=== PATIENT | female | born 1975 | race Asian ===

== ENCOUNTER → 2018-01-20 | Outpatient (CLI) | payer OTHER ==
[~2018-01-20] MED LIST: BIRTH CONTROL PILL; CEP500 PO; DESO1TAB40 PO
--- NOTE | 2018-01-20 10:56 | RADIOLOGY IMAGING REPORT ---
FACILITY: [facility] [place] PATIENT NAME: Jarad Levine : 1975 MR: [id number] V: [id number] EXAM DATE: ORDERING PHYSICIAN: RICHARD DEL ANGEL TECHNOLOGIST: Location: [facility] Patient: Jarad Levine : 1975 Visit/Account:[id number] Date of Sevice: 01/20/2018 THYROID HISTORY: Hypothyroidism COMPARISON: None. FINDINGS: SIZE: Normal. Right lobe: 4.6 x 0.9 x 1.5 cm Left lobe: 4.2 x 1 x 1.3 cm Isthmus: 2.7 mm PARENCHYMA: Homogeneous. NODULES: Right lobe: * None discrete. Left lobe: * None discrete. Isthmus: * None discrete. VASCULARITY: Slightly diminished bilaterally ADDITIONAL FINDINGS: None. IMPRESSION: Homogeneous appearing thyroid gland without evidence of focal nodules There is slightly diminished vascularity noted bilaterally REFERENCE: 2015 [place] [employer] Management Guidelines for Adult Patients with Thyroid Nodules and D ifferentiated Thyroid Cancer: The [place] [employer] Guidelines Task Force on Thyroid Nodul es and Differentiated Thyroid Cancer. SONOGRAPHIC PATTERNS: * Benign: Purely cystic nodules (no solid component); estimated risk of malignancy <1 percent; no bi opsy recommended. * Very Low Suspicion: Spongiform or partially cystic nodules without any of the sonographic features described in low, intermediate, or high suspicion patterns; estimated risk of malignancy <3 percent; consider FNA at > 2 cm (Observation without FNA is also a reasonable option). * Low Suspicion: Isoechoic or hyperechoic solid nodule, or partially cystic nodule with eccentric so lid areas, without microcalcification, irregular margin or ETE (extra-thyroidal extension), or taller than wide shape; estimated risk of malignancy 5-10 percent; recommend FNA at >1.5 cm. * Intermediate Suspicion: Hypoechoic solid nodule with smooth margins without microcalcifications, E TE (extra-thyroidal extension), or taller than wide shape; estimated risk of malignancy 10-20 percent ; recommend FNA at > 1 cm. * High Suspicion: Solid hypoechoic nodule or solid hypoechoic component of a partially cystic nodule with one or more of the following features: irregular margins (infiltrative, microlobulated), microc alcifications, taller than wide shape, rim calcifications with small extrusive soft tissue component, evidence of ETE (extra-thyroidal extension); estimated risk of malignancy >70-90 percent; recommend FNA at > 1 cm. NOTES: * Although a sonographically suspicious subcentimeter thyroid nodule without evidence of extrathyroi sixto extension or sonographically suspicious lymph nodes may be observed with close sonographic follow -up rather than pursuing immediate FNA, patient age and preference may modify decision-making. A > 50% interval increase in nodule volume and/or development of new suspicious sonographic features are felt to be a valid reasons for potential re-aspiration of a nodule previously shown to have benig n FNA cytology. Report Dictated By: Nancy Craven MD at 01/20/2018 10:50 AM Report E-Signed By: Nancy Craven MD at 01/20/2018 10:52 AM WSN:[id number]
== END ==
LOC: US 01:51
PROVIDERS: ATTEND Family Medicine
DX: E03.9 Hypothyroidism, unspecified (principal)
CPT/HCPCS: 76536

== ENCOUNTER → 2018-05-27 | Outpatient (CLI) | payer OTHER ==
[~2018-05-27] MED LIST changes: +FEXO-72 PO; +LEVO50TA80 PO
== END ==
LOC: LAB 16:35
PROVIDERS: ATTEND Obstetrics & Gynecology
DX: E03.9 Hypothyroidism, unspecified (principal); Z31.49 Encounter for other procreative investigation and testing

== ENCOUNTER → 2018-05-29 | Outpatient (CLI) | payer OTHER | LOC: LAB 10:16 | PROVIDERS: ATTEND Obstetrics & Gynecology | DX: E03.9 Hypothyroidism, unspecified (principal); Z31.49 Encounter for other procreative investigation and testing | CPT/HCPCS: 36415; 82670; 83001; 83002; 83520; 84146; 84443 ==

== ENCOUNTER → 2018-07-14 | Outpatient (CLI) | payer OTHER ==
[~2018-07-14] MED LIST changes: +LEVO75TA73 PO
== END ==
LOC: LAB 09:47
PROVIDERS: ATTEND Obstetrics & Gynecology
DX: Z31.41 Encounter for fertility testing (principal)
CPT/HCPCS: 36415; 84144

== ENCOUNTER → 2018-08-02 | Outpatient (CLI) | payer OTHER ==
[2018-08-02 09:47] LABS: PLATELET COUNT, AUTOMATED 423 K/uL (150-450)
== END ==
LOC: LAB 09:15
PROVIDERS: ATTEND Obstetrics & Gynecology Gynecology
DX: Z01.83 Encounter for blood typing (principal); Z11.3 Encounter for screening for infections with a predominantly sexual mode of transmission; Z11.59 Encounter for screening for other viral diseases; Z11.8 Encounter for screening for other infectious and parasitic diseases; Z13.0 Encounter for screening for diseases of the blood and blood-forming organs and certain disorders involving the immune mechanism; Z13.29 Encounter for screening for other suspected endocrine disorder
CPT/HCPCS: 36415; 85007; 85027; 86703; 86762; 86780; 86787; 86803; 86850; 86900; 86901; 87340